=== PATIENT | male | born 1985 | race Caucasian/White ===

== ENCOUNTER 2017-07-21 06:13 | Emergency (ER) | payer SELFPAY ==
[~2017-07-21 06:13] MED LIST: PRED50 PO; VENTAER INH
[2017-07-21 06:15] VITALS: BP 110/59; PULSE 75; RESP 18; TEMP 97.2; O2SAT 99
--- NOTE | 2017-07-21 06:45 | PD ---
HPI Chief Complaint: Back/ Neck Pain or Injury Time Seen by Provider: 06:37 Travel History International Travel<30 days: No Contact w/Intl Traveler<30days: No Traveled to known affect area: No History of Present Illness HPI Patient is a 32-year-old male presenting to the emergency department for evaluation of right neck, submandibular pain. Patient states it started Wednesday, he states is getting progressively worse over the last several days. He reports that he fell asleep at 430 this morning when he did wake up an hour later in pain. He states it feels sore when he turns his head and when he swallows. He denies any dysphasia or drooling. He does state that he had an ear infection last week. He denies any fevers or chills. Symptom onset was gradual, symptoms are mild to moderate nature. Pain is constant with intermittent flareups. He denies any injury or trauma. PFSH Past Medical History Asthma: Yes Respiratory: Yes (ASTHMA) Integumentary: Yes (PSORIASIS) Past Surgical History Surgical History: No Previous Surgery Abdominal Surgery: No AICD: No Appendectomy: No Arteriovenous Shunt: No Cardiac Surgery: No Cholecystectomy: No Ear Surgery: No Endocrine Surgery: No Eye Surgery: No Genitourinary Surgery: No Gynecologic Surgery: No Insulin Pump: No Joint Replacement: No Oral Surgery: No Pacemaker: No Thoracic Surgery: No Social History Alcohol Use: Yes (OCC ) Tobacco Use: Yes (OCC ) Substance Use: Yes (MARIJUANA ) Allergies-Medications (Allergen,Severity, Reaction): Coded Allergies: No Known Allergies (Verified , 08/24/16) Reported Meds & Prescriptions Reported Meds & Active Scripts Active Robaxin (Methocarbamol) 750 Mg Tab 750 Mg PO TID PRN Ibuprofen 600 Mg Tab 600 Mg PO TID PRN Ventolin Hfa 18 GM Inh (Albuterol Sulfate) 90 Mcg/Act Aer 2 Puff INH Q6H PRN Prednisone 50 Mg Tab 50 Mg PO DAILY Review of Systems Except as stated in HPI: all other systems reviewed are Neg General / Constitutional: No: Fever, Chills HENT: Positive: Sore Throat, Neck Pain, No: Headaches, Congestion Cardiovascular: No: Chest Pain or Discomfort Respiratory: No: Cough Gastrointestinal: No: Nausea Musculoskeletal: Positive: Myalgias Physical Exam Narrative GENERAL: Well-developed, well-nourished, alert male. Presenting in no acute distress. SKIN: Warm and dry. No rash or obvious lesions. HEAD: Normocephalic. EYES: No scleral icterus. No injection or drainage. NECK: Supple, trachea midline. No JVD or lymphadenopathy. Tender to palpation to the right submandibular/anterior neck adjacent to the sternocleidomastoid. Posterior pharynx with mild erythema and cobblestone appearance. CARDIOVASCULAR: Regular rate and rhythm without murmurs, gallops, or rubs. RESPIRATORY: Breath sounds equal bilaterally. No accessory muscle use. GASTROINTESTINAL: Abdomen soft, non-tender, nondistended. MUSCULOSKELETAL: No cyanosis, or edema. BACK: Nontender without obvious deformity. No CVA tenderness. Data Data Last Documented VS Vital Signs Date Time Temp Pulse Resp B/P (MAP) Pulse Ox O2 Delivery O2 Flow Rate FiO2 07/21/17 06:15 97.2 75 18 110/59 (76) 99 Orders Orders Soft Tissue Neck (07/21/17 ) Group A Rapid Strep Screen (07/21/17 06:38) Strep Culture (Group A) (07/21/17 06:45) Ibuprofen (Motrin) (07/21/17 08:00) Methocarbamol (Robaxin) (07/21/17 08:00) Ed Discharge Order (07/21/17 08:00) MDM Medical Decision Making Medical Screen Exam Complete: Yes Emergency Medical Condition: Yes Interpretation(s) Vital Signs Date Time Temp Pulse Resp B/P (MAP) Pulse Ox O2 Delivery O2 Flow Rate FiO2 07/21/17 06:15 97.2 75 18 110/59 (76) 99 Differential Diagnosis Strep pharyngitis versus lymphadenitis versus abscess versus muscle strain versus muscle spasm versus other Narrative Course Patient is a 32-year-old male presenting to the emergency department for evaluation of right neck pain. Patient's vital signs are stable, his airways patent. Will obtain a x-ray of the neck, will also check rapid strep. Exam appears most consistent with musculoskeletal strain however due to worsening symptoms and recent illness will rule out strep pharyngitis or abscess. Care of patient transferred to Leela FORD at the end of my shift. She will determine patient's disposition. Scripts Methocarbamol (Robaxin) 750 Mg Tab 750 MG PO TID Y for MUSCLE SPASM, #21 TAB 0 Refills Prov: Leela Hauser 07/21/17 Ibuprofen (Ibuprofen) 600 Mg Tab 600 MG PO TID Y for PAIN SCALE 1 TO 10, #21 TAB 0 Refills Prov: Leela Hauser 07/21/17 Nikki Farley July 21, 2017 06:45
--- NOTE | 2017-07-21 06:56 | RADRPT ---
EXAM DATE: 07/21/2017 6:52 AM EDT AGE/SEX: 32 years / Male INDICATIONS: Right side neck and jaw pain since Wednesday, no known trauma. CLINICAL DATA: This is the patient's initial encounter. Patient reports that signs and symptoms have been present for 3 days and indicates a pain score of 4/10. MEDICAL/SURGICAL HISTORY: None. None. COMPARISON: No prior exams available for comparison. FINDINGS: Two-view examination of the soft tissues of the neck demonstrates the hypopharyngeal airway to have a grossly normal configuration. The trachea is midline. No radiopaque foreign bodies are seen. CONCLUSION: Negative examination. Electronically signed by: Theresa Solano MD 07/21/2017 6:54 AM EDT
[2017-07-21] MEDS ORDERED: IBUP-232 PO (07:52)
[2017-07-21] MEDS ORDERED: ROBA750T PO (07:52)
--- NOTE | 2017-07-21 07:59 | PD ---
Physical Exam Date Seen by Provider: July 21, 2017 Time Seen by Provider: 07:49 Narrative I resumed care from LOGAN Jordan. In short, this is a 32-year-old male that presents to the emergency department for evaluation of right neck and submandibular pain that started on Wednesday, but worsened this morning. Patient states that the current pain is 6/10, without radiation. He states that turning his head and swelling will exacerbate the pain. Patient states that he had an ear infection last week and was on antibiotics for that. He reports a sore throat as well. He reports history of asthma and is on ProAir air. Patient denies any fevers or chills. He denies any dental pain. He denies any injury or trauma. Mild severity. GENERAL: Well-nourished, well-developed male patient, afebrile. SKIN: Focused skin assessment warm/dry. HEAD: Normocephalic. Atraumatic. EYES: No scleral icterus. No injection or drainage. NECK: Supple, trachea midline. No JVD or lymphadenopathy. ENT: Mucosa pink and moist. Erythema without exudates. No uvular edema. No uvular, palatal, or tonsillar deviation. Airway patent. Nasal turbinates appear normal without nasal blood, purulent drainage or septal hematoma. Bilateral tympanic membranes clear without erythema or perforation. No dental pain to palpation. CARDIOVASCULAR: Regular rate and rhythm without murmurs, gallops, or rubs. RESPIRATORY: Breath sounds equal bilaterally. No accessory muscle use. Lung sounds are clear to auscultation. GASTROINTESTINAL: Abdomen soft, non-tender, nondistended. MUSCULOSKELETAL: No cyanosis, or edema. Patient has tenderness over right neck. He has full lateral rotation of the neck without pain or stiffness. BACK: Nontender without obvious deformity. No CVA tenderness. Data Data Last Documented VS Vital Signs Date Time Temp Pulse Resp B/P (MAP) Pulse Ox O2 Delivery O2 Flow Rate FiO2 07/21/17 06:15 97.2 75 18 110/59 (76) 99 Orders Orders Soft Tissue Neck (07/21/17 ) Group A Rapid Strep Screen (07/21/17 06:38) Strep Culture (Group A) (07/21/17 06:45) Ibuprofen (Motrin) (07/21/17 08:00) Methocarbamol (Robaxin) (07/21/17 08:00) MDM Supervised Visit with ROBBIE: No Interpretation(s) Last Impressions Soft Tissue Neck X-Ray 07/21/17 0000 Signed Impressions: CONCLUSION: Negative examination. Differential Diagnosis Muscle strain versus strep pharyngitis versus URI versus lymphadenitis Narrative Course 32-year-old male presents to the emergency department for right neck pain and sore throat. Strep swab is negative. Soft tissue x-ray of the neck is negative. Patient will be treated for muscle strain. He also probably has a URI as well. I do not feel an enlarged lymph node where he has his pain. Patient is given ibuprofen 600 mg p.o. and Robaxin 500 mg p.o. He will be discharged with prescriptions for the same. He is to follow-up with his primary care physician or return here for any acute worsening of symptoms. The patient was discharged in stable condition with instructions, including return instructions and follow up instructions. Diagnosis Primary Impression: Muscle strain Referrals: [facility] Primary Care Physician call for appointment Patient Instructions: General Instructions, Muscle Strain (ED) Departure Forms: Tests/Procedures, Work Release Enter return to work date: Jul 23, 2017 Additional Instruction: Take ibuprofen as directed as needed with food for pain. Take Robaxin as directed as needed. Ice for 20 minutes 4-5 times daily. Follow-up with a primary care physician. Return to the emergency department for any acute worsening of symptoms. Med/Other Pt SpecificInfo: Prescription(s) given Scripts Methocarbamol (Robaxin) 750 Mg Tab 750 MG PO TID Y for MUSCLE SPASM, #21 TAB 0 Refills Prov: Leela Hauser 07/21/17 Ibuprofen (Ibuprofen) 600 Mg Tab 600 MG PO TID Y for PAIN SCALE 1 TO 10, #21 TAB 0 Refills Prov: Leela Hauser 07/21/17 Disposition: DISCHARGE HOME Condition: Stable Leela Hauser July 21, 2017 07:59
[2017-07-21] MEDS ORDERED: IBUPROFEN 600 MG TAB PO ONE (08:00)
[2017-07-21] MEDS ORDERED: METHOCARBAMOL 500 MG TAB PO ONE (08:00)
== END 2017-07-21 08:20 | disposition home or self-care (01) ==
LOC: NEPD 06:13
DX: T14.8XXA Other injury of unspecified body region, initial encounter (principal); X58.XXXA Exposure to other specified factors, initial encounter
CPT/HCPCS: 70360; 87081; 87880; 99284